=== PATIENT | female | born 1995 ===

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

== ENCOUNTER 2017-02-27 13:29 | Observation (INO) | payer MEDICAID ==
[2017-02-27 13:30] VITALS: BMI 28.3
[2017-02-27 13:36] VITALS: RESP 18
[2017-02-27] MEDS ORDERED: Sodium Chloride 0.9% 1,000 ML IV STA (13:47)
--- NOTE | 2017-02-27 13:54 | ED PDOC ---
Arrival/HPI - General Chief Complaint: Back Pain Historian: Patient - History of Present Illness Narrative History of Present Illness (Text): 02/27/17 Leelee Lazo is a 21 y/o female, who presents to the ED complaining of lower abdominal pain for the past few days. Patient reports the pain radiates to the left side of her back and shoots up. She also notes having mild dysuria and an episode of vomiting. Additionally, she complains of numbness on her left leg since this morning. Patient denies chest pain, shortness of breath, headache, fever, chills, cough, diarrhea, changes in bowel habits, hematuria, frequency, or vaginal discharge Time/Duration: Other (few days) Symptom Onset: Sudden Symptom Course: Unchanged Associated Symptoms (Text): mild dysuria, vomiting, and left left numbness since this morning. Past Medical History - Provider Review Nursing Documentation Reviewed: Yes - Past History Past History: No Previous - Infectious Disease Hx of Infectious Diseases: None - Tetanus Immunization Tetanus Immunization: Unknown - Cardiac Hx Cardiac Disorders: No - Pulmonary Hx Respiratory Disorders: Yes Hx Asthma: Yes - Neurological Hx Neurological Disorder: Yes Hx Syncope: Yes - HEENT Hx HEENT Disorder: No - Renal Hx Renal Disorder: No - Endocrine/Metabolic Hx Endocrine Disorders: No - Hematological/Oncological Hx Blood Disorders: No - Integumentary Hx Dermatological Disorder: No - Musculoskeletal/Rheumatological Hx Musculoskeletal Disorders: Yes Hx Falls: Yes - Gastrointestinal Hx Gastrointestinal Disorders: No - Genitourinary/Gynecological Hx Genitourinary Disorders: No 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...last seen before her trip to [facility] a few weeks ago - Psychiatric Hx Psychophysiologic Disorder: No Hx Depression: No Hx Substance Use: No - Past Surgical History Past Surgical History: No Previous - Anesthesia Hx Anesthesia: No Hx Anesthesia Reactions: No - Suicidal Assessment Feels Threatened In Home Enviroment: No Family/Social History - Physician Review Nursing Documentation Reviewed: Yes Family/Social History: Unknown Family HX Smoking Status: Never Smoked Hx Alcohol Use: No Hx Substance Use: No Hx Substance Use Treatment: No Allergies/Home Meds Allergies/Adverse Reactions: Allergies No Known Allergies Allergy (Verified 09/26/16 21:47) Review of Systems - Review of Systems Constitutional: absent: Fevers Respiratory: absent: SOB Cardiovascular: absent: Chest Pain Gastrointestinal: Abdominal Pain (lower abdominal pain ), Vomiting Genitourinary Female: Dysuria (mild). absent: Hematuria, Vaginal Discharge Musculoskeletal: Back Pain (left sided), Other (numbness on left leg ) Neurological: absent: Headache Physical Exam Vital Signs Reviewed: Yes Vital Signs Temp Pulse Resp BP Pulse Ox 02/27/17 19:39 98 F 59 L 18 101/58 L 100 02/27/17 16:32 97.8 F 69 18 107/58 L 100 02/27/17 13:33 74 18 121/69 99 Temperature: Afebrile Blood Pressure: Normal Pulse: Regular Respiratory Rate: Normal Appearance: Positive for: Well-Appearing, Non-Toxic, Comfortable Pain Distress: None Mental Status: Positive for: Alert and Oriented X 3 - Systems Exam Head: Present: Atraumatic, Normocephalic Neck: Present: Normal Range of Motion Abdomen: Present: Normal Bowel Sounds. No: Tenderness, Distention, Peritoneal Signs Genitourinary/Pelvic Exam: Present: Vaginal Discharge (WHITISH), Adenexal Mass ( LEFT ADNEXAL TENDERNESS) Back: Present: CVA Tenderness Upper Extremity: Present: Normal Inspection. No: Cyanosis, Edema Lower Extremity: Present: Normal Inspection, Normal ROM. No: Edema Neurological: Present: GCS=15, CN II-XII Intact, Speech Normal Skin: Present: Warm, Dry, Normal Color. No: Rashes Psychiatric: Present: Alert, Oriented x 3, Normal Insight, Normal Concentration Medical Decision Making ED Course and Treatment: 02/27/17 Impression: 21 y/o female with CVA tenderness. Plan: -- Urinalysis -- Labs -- CT abdomen and pelvis -- Morphine, Omnipaque, Zofran and Sodium Chloride -- Transvaginal Ultrasound -- Reassess and disposition See ED-OBS for further documentation. Scribe Attestation: Documented by Rosie Eaton and Matthew Hernandes, acting as a scribe for Eliana Galdamez PA-C Provider Scribe Attestation: All medical record entries made by the Scribe were at my direction and personally dictated by me. I have reviewed the chart and agree that the record accurately reflects my personal performance of the history, physical exam, medical decision making, and the department course for this patient. I have also personally directed, reviewed, and agree with the discharge instructions and disposition. 02/27/17 17:13 02/27/17 17:14 02/27/17 19:25 PATIENT NOTES PERSISTENT LLQ ABDOMINAL PAIN GC SENT TORADOL 30 MG IV X 1 DOSE ROCEPHIN 250 MG IM X 1 DOSE DOXYCYCLINE 100MG X 1 DOSE - Lab Interpretations Lab Results: 02/27/17 14:10 02/27/17 14:10 Lab Results 02/27/17 14:10: WBC 12.9 H D, RBC 4.79, Hgb 14.0 D, Hct 42.1, MCV 87.9, MCH 29.2, MCHC 33.2, RDW 12.8, Plt Count 190, MPV 10.4, Neut % (Auto) 66.5, Lymph % (Auto) 24.7, [place] % (Auto) 7.6, Eos % (Auto) 0.9, Baso % (Auto) 0.3, Neut # 8.6 H, Lymph # 3.2, [place] # 1.0 H, Eos # 0.1, Baso # 0.0 02/27/17 14:10: Sodium 143, Potassium 4.2, Chloride 109 H, Carbon Dioxide 21 L, Anion Gap 17, BUN 15, Creatinine 0.7, Est GFR ( Amer) > 60, Est GFR (Non- Af Amer) > 60, Random Glucose 91, Calcium 9.2, Total Bilirubin 0.4, AST 24, ALT 34, Alkaline Phosphatase 65, Total Protein 7.9, Albumin 4.4, Globulin 3.6, Albumin/Globulin Ratio 1.2, Lipase 157 02/27/17 13:58: Urine Color Yellow, Urine Clarity Clear, Urine pH 5.0, Ur Specific [place] 1.019, Urine Protein Negative, Urine Glucose (UA) Neg, Urine Ketones Negative, Urine Blood Negative, Urine Nitrate Negative, Urine Bilirubin Negative, Urine Urobilinogen 0.2-1.0, Ur Leukocyte Esterase Neg, Urine RBC (Auto ) 1, Urine Microscopic WBC 1, Ur Squamous Epith Cells 2 I have reviewed the lab results: Yes - RAD Interpretation Radiology Orders: 02/27/17 14:52 TRANSVAGINAL [US] Stat - Medication Orders Current Medication Orders: Discontinued Medications Ceftriaxone Sodium (Rocephin) 250 mg IM ONCE ONE Stop: 02/27/17 19:25 Last Admin: 02/27/17 19:48 Dose: 250 mg IM Administration Charges Document 02/27/17 19:48 CC (Rec: 02/27/17 19:48 CC [email or web address]) Injection Site MAR Injection Site Right Gluteus Christian Charges for Administration # of IM Administrations 1 Famotidine (Pepcid) 20 mg IVP STAT STA Stop: 02/27/17 16:40 Last Admin: 02/27/17 16:45 Dose: 20 mg IVP Administration Document 02/27/17 16:45 CC (Rec: 02/27/17 16:45 CC [email or web address]) Charges for Administration # of IVP Administrations 1 Sodium Chloride (Sodium Chloride 0.9%) 1,000 mls @ 500 mls/hr IV .Q2H STA Stop: 02/27/17 15:46 Last Admin: 02/27/17 14:16 Dose: 500 mls/hr eMAR Start Stop Document 02/27/17 14:16 CC (Rec: 02/27/17 14:17 CC [email or web address]) Intravenous Solution Start Date 02/27/17 Start Time 14:17 Promethazine HCl 25 mg/ Sodium (Chloride) 51 mls @ 102 mls/hr IVPB ONCE ONE Stop: 02/27/17 17:08 Last Admin: 02/27/17 16:45 Dose: 102 mls/hr Iohexol (Omnipaque 240 (50 Ml)) 50 ml PO STAT STA Stop: 02/27/17 15:18 Last Admin: 02/27/17 15:37 Dose: 50 ml Ketorolac Tromethamine (Toradol) 30 mg IVP STAT STA Stop: 02/27/17 19:25 Last Admin: 02/27/17 19:48 Dose: 30 mg MAR Pain Assessment Document 02/27/17 19:48 CC (Rec: 02/27/17 19:48 CC [email or web address]) Pain Reassessment Is this a pain reassessment? No IVP Administration Document 02/27/17 19:48 CC (Rec: 02/27/17 19:48 CC [email or web address]) Charges for Administration # of IVP Administrations 1 Morphine Sulfate (Morphine) 4 mg IVP ONCE ONE Stop: 02/27/17 14:51 Last Admin: 02/27/17 15:06 Dose: 4 mg MAR Pain Assessment Document 02/27/17 15:06 CC (Rec: 02/27/17 15:06 CC [email or web address]) Pain Reassessment Is this a pain reassessment? No IVP Administration Document 02/27/17 15:06 CC (Rec: 02/27/17 15:06 CC [email or web address]) Charges for Administration # of IVP Administrations 1 Ondansetron HCl (Zofran Inj) 4 mg IVP ONCE ONE Stop: 02/27/17 13:48 Last Admin: 02/27/17 14:17 Dose: 4 mg IVP Administration Document 02/27/17 14:17 CC (Rec: 02/27/17 14:17 CC [email or web address]) Charges for Administration # of IVP Administrations 1 Ondansetron HCl (Zofran Inj) 4 mg IVP ONCE ONE Stop: 02/27/17 16:39 Last Admin: 02/27/17 16:45 Dose: 4 mg IVP Administration Document 02/27/17 16:45 CC (Rec: 02/27/17 16:45 CC [email or web address]) Charges for Administration # of IVP Administrations 1 ED OBSERVATION Discharge: Yes Date of observation admission: 02/27/17 Time of observation admission: 15:25 - Observation admission statement Patient is being placed in observation because:: Symptom relief of abdominal pain and left sided back pain. - Goals of Observation Goals of observation are:: Stabilize patient's symptoms and read imaging ordered. - Progress Note Progress Note: Iliana is being observed at bedside for response to continuing treatment. Lab tests will be reviewed. CT scan will be reviewed. Computer monitor was checked for vital sign trends and cardiac rhythm. Time: 16:29 US ABD/PELVIS FINDINGS: UTERUS: Measures 3.2 x 4.4 x 6.4 cm. Normal in size and appearance. No fibroid or other mass lesion seen. ENDOMETRIUM: Measures 4.3 mm in diameter. No ultrasound findings to suggest gestational sac, fluid, debris, mass or polyp or other pathologic process within the endometrium. CERVIX: No cervical abnormality identified. RIGHT OVARY: Measures 2.2 x 2.7 x 2.7 cm. No solid mass. Normal flow. Dominant simple cyst 10 x 14 mm. Multiple subcentimeter follicles. LEFT OVARY: Measures 1.8 x 2.4 x 2.4 cm. No solid mass. Normal flow. Multiple subcentimeter follicles. FREE FLUID: No significant free fluid noted. OTHER FINDINGS: None. IMPRESSION: No acute findings related to/accounting for the clinical presentation. No significant interval change compared to the prior examination(s). Time: 16:39 --Patient experiencing nausea and vomiting. Vitals are stable --Pepcid IV --Phergan IV --Zofran IV Time: 18:09 --Patient is resting comfortably. No acute distress. --Awaiting CT results. Time: 18:47 CT ABD/PELVIS FINDINGS: LOWER THORAX: Unremarkable. Lower lobe infiltrates apparent on the prior CT scan have resolved. LIVER: Unremarkable. No gross lesion or ductal dilatation. GALLBLADDER AND BILE DUCTS: Unremarkable. PANCREAS: Unremarkable. No gross lesion or ductal dilatation. SPLEEN: Unremarkable. ADRENALS: Unremarkable. No mass. KIDNEYS AND URETERS: Unremarkable. No hydronephrosis. No solid mass. VASCULATURE: Unremarkable. No aortic aneurysm. BOWEL: Constipation without fecal impaction or obstruction. APPENDIX: Normal appendix. PERITONEUM: Unremarkable. No free fluid. No free air. LYMPH NODES: Multiple mesenteric and retroperitoneal lymph nodes none larger than 1 cm. Findings consistent with mesenteric adenitis. BLADDER: Unremarkable. REPRODUCTIVE: Adnexal cysts better appreciated on concurrent pelvic ultrasound. BONES: No acute fracture. OTHER FINDINGS: None. IMPRESSION: No acute findings related to/accounting for the clinical presentation. Additional benign and/or incidental findings described above. No significant interval change compared to the prior examination(s). Time: 19:24 --Rocephin IM --Toradol IV Disposition/Present on Arrival - Present on Arrival History of DVT/PE: No History of Uncontrolled Diabetes: No Urinary Catheter: No History Surgical Site Infection Following: None - Disposition Have Diagnosis and Disposition been Completed?: Yes Diagnosis: Back pain, Abdominal pain, Mesenteric adenitis Disposition: HOME/ ROUTINE Disposition Time: 19:26 Patient Plan: Discharge Condition: FAIR
[2017-02-27 14:13] LABS: RBC URINE 1 /hpf (0-3); URINE BILIRUBIN NEGATIVE (NEGATIVE); URINE BLOOD NEGATIVE (NEGATIVE); URINE COLOR YELLOW (YELLOW); URINE GLUCOSE (UA) NEG (Normal); URINE KETONE NEGATIVE (NEGATIVE); URINE LEUKOCYTE ESTERASE NEG Leu/uL (Negative); URINE PROTEIN NEGATIVE (NEGATIVE); URINE UROBILINOGEN 0.2-1.0 mg/dL (0.2-1.0); WBC URINE 1 /hpf (0-5)
[2017-02-27 14:26] LABS: BASO % 0.3 % (0.0-2.0); EOS # 0.1 K/uL (0.0-0.7); EOS % 0.9 % (0.0-4.0); HEMATOCRIT 42.1 % (34.0-47.0); LYMPH # 3.2 K/uL (1.0-4.3); LYMPH % 24.7 % (20.0-40.0); MEAN CELL VOLUME 87.9 fl (81.0-99.0); MEAN CORPUSCULAR HEMOGLOBIN 29.2 pg (27.0-31.0); MEAN CORPUSCULAR HGB CONC 33.2 g/dL (33.0-37.0); MEAN PLATELET VOLUME 10.4 fl (7.2-11.7); MONO % 7.6 % (0.0-10.0); NEUT # 8.6 K/uL (1.8-7.0); NEUT % 66.5 % (50.0-75.0); NRBC % 0.1 % (0.0-0.0); RED CELL DISTRIBUTION WIDTH 12.8 % (11.5-14.5); WHITE BLOOD COUNT 12.9 K/uL (4.8-10.8)
[2017-02-27 14:42] LABS: ALB/GLOB RATIO 1.2 (1.0-2.1); ALKALINE PHOSPHATASE 65 U/L (38-126); ALT/SGPT 34 U/L (9-52); AST/SGOT 24 U/L (14-36); BILIRUBIN,TOTAL 0.4 mg/dl (0.2-1.3); BLOOD UREA NITROGEN 15 mg/dl (7-17); CALCIUM 9.2 mg/dL (8.4-10.2); CARBON DIOXIDE 21 mmol/L (22-30); CHLORIDE 109 mmol/L (98-107); GFR AFRICAN-AMERICAN > 60; GLUCOSE,RANDOM 91 mg/dL (65-105); LIPASE 157 U/L (23-300); POTASSIUM 4.2 MMOL/L (3.6-5.0); SODIUM 143 mmol/l (132-148); TOTAL PROTEIN 7.9 G/DL (6.3-8.2)
[2017-02-27] MEDS ORDERED: Iohexol 240 (50 ml) PO STA (15:17)
[2017-02-27] MEDS ORDERED: Iohexol 240 (50 ml) ONE (15:33)
--- NOTE | 2017-02-27 16:30 | US ---
HISTORY: LLQ PAIN LMP 02/22/2017 COMPARISON: None available. TECHNIQUE: 09/29/2016 FINDINGS: UTERUS: Measures 3.2 x 4.4 x 6.4 cm. Normal in size and appearance. No fibroid or other mass lesion seen. ENDOMETRIUM: Measures 4.3 mm in diameter. No ultrasound findings to suggest gestational sac, fluid, debris, mass or polyp or other pathologic process within the endometrium. CERVIX: No cervical abnormality identified. RIGHT OVARY: Measures 2.2 x 2.7 x 2.7 cm. No solid mass. Normal flow. Dominant simple cyst 10 x 14 mm. Multiple subcentimeter follicles. LEFT OVARY: Measures 1.8 x 2.4 x 2.4 cm. No solid mass. Normal flow. Multiple subcentimeter follicles. FREE FLUID: No significant free fluid noted. OTHER FINDINGS: None. IMPRESSION: No acute findings related to/accounting for the clinical presentation. No significant interval change compared to the prior examination(s).
[2017-02-27 16:32] VITALS: O2SAT 100
[2017-02-27] MEDS ORDERED: Promethazine 25 MG in Sodium Chloride 0.9% 50 ML IVPB ONE (16:39)
[2017-02-27] MEDS ORDERED: Sodium Chloride 0.9% 50 ML IV ONE (17:27)
[2017-02-27] MEDS ORDERED: Iohexol 300 100 ML IJ ONE (17:27)
--- NOTE | 2017-02-27 18:48 | CT ---
PROCEDURE: CT Abdomen and Pelvis with contrast HISTORY: LLQ ABDOMINAL PAIN COMPARISON: 09/30/2016 CT abdomen and pelvis is February 26, 2017. Pelvic ultrasound TECHNIQUE: Contrast dose: 90 cc Omnipaque 300 Radiation dose: Total exam DLP = 712.93 mGy-cm. This CT exam was performed using one or more of the following dose reduction techniques: Automated exposure control, adjustment of the mA and/or kV according to patient size, and/or use of iterative reconstruction technique. FINDINGS: LOWER THORAX: Unremarkable. Lower lobe infiltrates apparent on the prior CT scan have resolved. LIVER: Unremarkable. No gross lesion or ductal dilatation. GALLBLADDER AND BILE DUCTS: Unremarkable. PANCREAS: Unremarkable. No gross lesion or ductal dilatation. SPLEEN: Unremarkable. ADRENALS: Unremarkable. No mass. KIDNEYS AND URETERS: Unremarkable. No hydronephrosis. No solid mass. VASCULATURE: Unremarkable. No aortic aneurysm. BOWEL: Constipation without fecal impaction or obstruction. APPENDIX: Normal appendix. PERITONEUM: Unremarkable. No free fluid. No free air. LYMPH NODES: Multiple mesenteric and retroperitoneal lymph nodes none larger than 1 cm. Findings consistent with mesenteric adenitis. BLADDER: Unremarkable. REPRODUCTIVE: Adnexal cysts better appreciated on concurrent pelvic ultrasound. BONES: No acute fracture. OTHER FINDINGS: None. IMPRESSION: No acute findings related to/accounting for the clinical presentation. Additional benign and/or incidental findings described above. No significant interval change compared to the prior examination(s).
[2017-02-27] MEDS ORDERED: cefTRIAXone (Rocephin) 250 mg Inj IM ONE (19:24)
[2017-02-27 19:40] VITALS: BP 101/58; PULSE 59; TEMP 98
[2017-02-27] MEDS ORDERED: cefTRIAXone (Rocephin) 250 mg Inj ONE (19:44)
== END 2017-02-27 19:26 | disposition home or self-care (01) ==
LOC: H.ER 13:29 → H.EROBSV 15:29
PROVIDERS: ADMIT Emergency Medicine; ATTEND Emergency Medicine
DX: I88.0 Nonspecific mesenteric lymphadenitis (principal); R10.32 Left lower quadrant pain; M54.89 Other dorsalgia; J45.909 Unspecified asthma, uncomplicated
CPT/HCPCS: 74177; 76830; 80053; 81003; 81025; 83690; 85025; 87086; 87491; 87591; 96372; 96374; 96375; 96376; 99284; G0378; J0696; J1885; J2270; J2405; J2550; J7040; Q9966; Q9967

== ENCOUNTER 2017-05-11 14:23 | Emergency (ER) | payer MEDICAID ==
[2017-05-11 14:23] VITALS: BMI 28.3
[2017-05-11 14:58] VITALS: RESP 18; O2SAT 99
[2017-05-11 15:42] LABS: RBC URINE 4 /hpf (0-3); URINE BACTERIA RARE (<OCC); URINE BILIRUBIN NEGATIVE (NEGATIVE); URINE BLOOD NEGATIVE (NEGATIVE); URINE COLOR YELLOW (YELLOW); URINE GLUCOSE (UA) NEG (Normal); URINE KETONE NEGATIVE (NEGATIVE); URINE LEUKOCYTE ESTERASE NEG Leu/uL (Negative); URINE PROTEIN NEGATIVE (NEGATIVE); URINE UROBILINOGEN 0.2-1.0 mg/dL (0.2-1.0); WBC URINE 2 /hpf (0-5)
[2017-05-11 15:55] LABS: BASO % 0.4 % (0.0-2.0); EOS # 0.2 K/uL (0.0-0.7); EOS % 1.7 % (0.0-4.0); HEMATOCRIT 41.7 % (34.0-47.0); LYMPH # 2.7 K/uL (1.0-4.3); LYMPH % 29.9 % (20.0-40.0); MEAN CELL VOLUME 88.5 fl (81.0-99.0); MEAN CORPUSCULAR HEMOGLOBIN 28.8 pg (27.0-31.0); MEAN CORPUSCULAR HGB CONC 32.6 g/dL (33.0-37.0); MEAN PLATELET VOLUME 10.7 fl (7.2-11.7); MONO % 10.7 % (0.0-10.0); NEUT # 5.1 K/uL (1.8-7.0); NEUT % 57.3 % (50.0-75.0); RED CELL DISTRIBUTION WIDTH 12.8 % (11.5-14.5); WHITE BLOOD COUNT 8.9 K/uL (4.8-10.8)
[2017-05-11 16:08] LABS: ALB/GLOB RATIO 1.2 (1.0-2.1); ALKALINE PHOSPHATASE 56 U/L (38-126); ALT/SGPT 33 U/L (9-52); AST/SGOT 22 U/L (14-36); BILIRUBIN,TOTAL 0.5 mg/dl (0.2-1.3); BLOOD UREA NITROGEN 13 mg/dl (7-17); CALCIUM 8.7 mg/dL (8.4-10.2); CARBON DIOXIDE 25 mmol/L (22-30); CHLORIDE 107 mmol/L (98-107); GFR AFRICAN-AMERICAN > 60; GLUCOSE,RANDOM 97 mg/dL (65-105); MAGNESIUM 1.8 MG/DL (1.6-2.3); POTASSIUM 3.9 MMOL/L (3.6-5.0); SODIUM 142 mmol/l (132-148); TOTAL PROTEIN 7.4 G/DL (6.3-8.2)
[2017-05-11 16:09] LABS: PARTIAL THROMBOPLASTIN TIME 32.2 Seconds (25.6-37.1)
[2017-05-11] MEDS ORDERED: Sodium Chloride 0.9% 1,000 ML IV STA (16:12)
[2017-05-11 16:37] LABS: THYROID STIMULATING HORMONE 1.63 mIU/ML (0.46-4.68)
--- NOTE | 2017-05-11 16:38 | ED PDOC ---
HPI: General Adult Time Seen by Provider: 05/11/17 14:38 Chief Complaint (Nursing): Weakness/Neurological Deficit Chief Complaint (Provider): weakness History Per: Patient History/Exam Limitations: no limitations Onset/Duration Of Symptoms: Intermittent Episodes Current Symptoms Are (Timing): Intermittent Episodes Recently: Seen In ED Additional Complaint(s): 22yo female c/o bilateral upper extremity paresthesias which started at school prior to an exam. States she had similar symptoms to her b/l legs yesterday while on a ladder at work, but denies difficulty walking, collapse, syncope, numbness, bladder or bowel disturbance, back pain or headache. She relates the symptoms to ovarian cyst pain which she experienced last month. She also states the neurologic symptoms are ongoing for several months. Denies double vision, change in speech or cognition. Past Medical History Reviewed: Historical Data, Nursing Documentation, Vital Signs Vital Signs: Last Vital Signs Temp 97.9 F 05/11/17 14:51 Pulse 67 05/11/17 16:40 Resp 18 05/11/17 14:51 BP 110/70 05/11/17 14:51 Pulse Ox 99 05/11/17 16:40 - Medical History PMH: Asthma Denies: Depression, Chronic Kidney Disease - Surgical History Surgical History: No Surg Hx - Family History Family History: States: Unknown Family Hx - Living Arrangements Living Arrangements: With Family - Social History Current smoker - smoking cessation education provided: No - Immunization History Hx Tetanus Toxoid Vaccination: Yes Hx Influenza Vaccination: No Hx Pneumococcal Vaccination: No - Home Medications Home Medications: Ambulatory Orders Medication Instructions Recorded Doxycycline Monohydrate 100 mg PO BID #28 tablet 10/01/16 Ondansetron ODT [Zofran ODT] 4 mg PO Q8 PRN #10 odt 10/01/16 oxyCODONE/Acetaminophen [Percocet 1 tab PO Q4 PRN #10 tab 10/01/16 5/325 mg Tab] Doxycycline Monohydrate 100 mg PO BID #28 tablet 02/27/17 Miconazole Nitrate [Monistat 3] 1 each VG DAILY #1 kit 02/27/17 Naproxen 1 tab PO Q12 PRN #14 tab 02/27/17 Omeprazole Magnesium [Prilosec Otc] 20 mg PO DAILY #14 tablet 02/27/17 diaZEpam [Valium] 5 mg PO Q6 PRN #5 tab 02/27/17 - Allergies Allergies/Adverse Reactions: Allergies Allergy/AdvReac Type Severity Reaction Status Date / Time No Known Allergies Allergy Verified 09/26/16 21:47 Review of Systems ROS Statement: Except As Marked, All Systems Reviewed And Found Negative Constitutional: Negative for: Fever, Chills ENT: Negative for: Throat Pain Cardiovascular: Negative for: Chest Pain, Palpitations, Paroxysmal Noc. Dyspnea Respiratory: Negative for: Cough, Shortness of Breath Gastrointestinal: Negative for: Nausea, Vomiting Genitourinary Female: Negative for: Dysuria Musculoskeletal: Negative for: Neck Pain Skin: Negative for: Rash, Lesions Neurological: Positive for: Other (paresthesia). Negative for: Weakness, Incoordination, Change in Speech, Confusion, Seizures, Headache Psych: Negative for: Anxiety Physical Exam - Reviewed Nursing Documentation Reviewed: Yes Vital Signs Reviewed: Yes - Physical Exam Appears: Positive for: Well, Non-toxic, No Acute Distress Head Exam: Positive for: ATRAUMATIC, NORMAL INSPECTION, NORMOCEPHALIC Skin: Positive for: Normal Color, Warm, DRY Eye Exam: Positive for: EOMI, Normal appearance, PERRL ENT: Positive for: Normal ENT Inspection Neck: Positive for: Normal, Painless ROM Cardiovascular/Chest: Positive for: Regular Rate, Rhythm Respiratory: Positive for: CNT, Normal Breath Sounds Pulses-Radial (L): 3+/4+ Pulses-Radial (R): 3+/4+ Gastrointestinal/Abdominal: Positive for: Bowel Sounds, Soft. Negative for: Tenderness Back: Positive for: Normal Inspection Extremity: Positive for: Normal ROM DTR - Knee (R): 3+ DTR - Knee (L): 3+ Neurologic/Psych: Positive for: Alert, Oriented. Negative for: Motor/Sensory Deficits - Laboratory Results Result Diagrams: 05/11/17 15:49 05/11/17 15:49 - ECG ECG: Positive for: Interpreted By Me ECG Rhythm: Positive for: Normal QRS, Normal ST Segment Rate: 67 O2 Sat by Pulse Oximetry: 99 Pulse Ox Interpretation: Normal Medical Decision Making Medical Decision Making: symptoms are ongoing intermittently for several months. Patient is ambulating to bathroom, talking on cell phone and moving in bed without difficulty. Basic labs and CT brain ordered. Likely requires outpatient neurologic evaluation. Workup in ED unremarkable CT brain rad report, labs and EKG reviewed Pt ambulating to BR without difficulty. DC to followup outpt neuro. Discussed could be MS, or other neurologic disorder hence important to obtain definitive outpt care. Disposition - Clinical Impression Clinical Impression: Paresthesia and pain of extremity - Patient ED Disposition Is Patient to be Admitted: No Counseled Patient/Family Regarding: Studies Performed, Diagnosis, Need For Followup - Disposition Referrals: Tyler Miramontes MD [Medical Doctor] - Disposition: Routine/Home Disposition Time: 18:30 Condition: STABLE Additional Instructions: FOLLOWUP WITH NEUROLOGIST FOR FURTHER TESTING. YOU MAY NEED AN MRI OF THE BRAIN OR OTHER TESTING TO RULE-OUT SERIOUS ILLNESS/. Instructions: Paresthesia (ED), Weakness (ED) Forms: [employer] ([place]akh)
--- NOTE | 2017-05-11 17:15 | CT ---
PROCEDURE: CT HEAD WITHOUT CONTRAST. HISTORY: b/l extremity weakness/parasthesias COMPARISON: None available. TECHNIQUE: Axial computed tomography images were obtained through the head/brain without intravenous contrast. Radiation dose: Total exam DLP = 839.20 mGy-cm. This CT exam was performed using one or more of the following dose reduction techniques: Automated exposure control, adjustment of the mA and/or kV according to patient size, and/or use of iterative reconstruction technique. FINDINGS: HEMORRHAGE: No intracranial hemorrhage. BRAIN: Normal delgado-white matter differentiation and density are appreciated throughout the cerebrum and cerebellum with the brainstem appearing unremarkable as well. There is no mass effect. There is no suspicious extra-axial fluid collection and the midline brain anatomy appears diffusely unremarkable. VENTRICLES: Unremarkable. No hydrocephalus. CALVARIUM: Unremarkable. PARANASAL SINUSES: Unremarkable as visualized. No significant inflammatory changes. MASTOID AIR CELLS: Unremarkable as visualized. No inflammatory changes. OTHER FINDINGS: Prominent adenoids are identified incidentally which are function of the patient's young age. IMPRESSION: Unremarkable unenhanced CT of the head. Consider follow-up MRI given clinical history.
[2017-05-11 19:08] VITALS: BP 112/70; PULSE 70; TEMP 97.8
--- NOTE | 2017-05-12 18:32 | CARD ---
APPROVED REPORT EKG Measurement Heart [id number] <Conclusion> Normal sinus rhythm Normal ECG
== END 2017-05-11 19:09 | disposition home or self-care (01) ==
LOC: H.ER 14:23
DX: R20.2 Paresthesia of skin (principal); J45.909 Unspecified asthma, uncomplicated
CPT/HCPCS: 70450; 80053; 81003; 81025; 82550; 83735; 84443; 84484; 84702; 85025; 85610; 85730; 93005; 96360; 96361; 99284; J2405; J7040